=== PATIENT | female | born 1995 | race Caucasian/White ===

== ENCOUNTER 2019-09-16 09:11 | Emergency (ER) | payer OTHER ==
[~2019-09-16] VITALS: Ht 167.6 cm; Wt 76.7 kg
[2019-09-16] MEDS ORDERED: ZOFRAN4 MG PO (09:39)
[2019-09-16 10:01] LABS: URINE BLOOD 3+ (Negative); URINE CLARITY CLOUDY; URINE COLOR BROWN; URINE GLUCOSE-RANDOM TRACE (Negative); URINE KETONES TRACE (Negative); URINE LEUKOCYTES-REFLEX NEGATIVE (Negative); URINE PROTEIN 2+ (Negative); URINE SPECIFIC GRAVITY >= 1.030 (1.005-1.030); URINE UROBILINOGEN 0.2 E.U./dl (0.2-1.0)
[2019-09-16 10:03] LABS: ICTOTEST (BILI CONFIRMATORY) Negative (Negative); URINE BILIRUBIN 2+ (Negative); URINE NITRITE-REFLEX POSITIVE (Negative)
[2019-09-16 10:04] LABS: SQUAMOUS >10 Many /LPF (0-3)
[2019-09-16 10:05] LABS: BACTERIA-REFLEX >30 Many /HPF (None Seen); CASTS None Seen /LPF (None Seen); CRYSTALS None Seen /LPF (None Seen); MUCUS 4-6 Moderate strn/LPF (None Seen); URINE RBC >20 Many /HPF (0-2); URINE WBC-REFLEX 0-5 Rare /HPF (0-5)
[2019-09-16 10:39] LABS: ABSOLUTE BASOPHILS 0.1 thou/uL (0.0-0.2); ABSOLUTE LYMPHOCYTES 2.1 thou/uL (0.8-5.3); ABSOLUTE NEUTROPHILS 6.7 thou/uL (1.6-8.1); BASOPHILS 0.6 %; EOSINOPHILS 0.4 %; HEMATOCRIT 42.6 % (37.0-47.0); LYMPHOCYTES 21.3 %; MCH 31.2 pg (26.0-34.0); MCHC 35.2 g/dL (28.0-37.0); MCV 88.7 fL (80.0-100.0); MONOCYTES 10.2 %; MPV 9.7 fl. (7.2-11.1); NUCLEATED RBCS 0 /100WBC; PLATELET COUNT* 282 thou/uL (150-400); POLYS 67.5 %; RDW-CV 12.4 % (10.5-14.5); WBC 9.8 thou/uL (4.0-11.0)
[2019-09-16 10:47] LABS: CALCIUM 8.9 mg/dL (8.5-10.1); CREATININE 0.8 mg/dL (0.6-1.3)
[2019-09-16 10:49] LABS: POTASSIUM 2.7 mmol/L (3.5-5.1)
[2019-09-16 10:52] LABS: ALBUMIN 4.1 g/dL (3.4-5.0); TOTAL BILIRUBIN 1.1 mg/dL (<0.1-1.0); TOTAL PROTEIN 8.4 g/dL (6.4-8.2)
[2019-09-16] MEDS ORDERED: ZOFRAN 4 MG ORAL4 MG PO (11:39)
[2019-09-16] MEDS ORDERED: POTASSIUM20 PO (11:39)
[2019-09-16] MEDS ORDERED: NORCO 5-325 TA1 EAC1 PO (11:39)
[2019-09-16] MEDS ORDERED: AUGMENTIN 875-1 EACH PO (11:39)
[2019-09-16 14:08] VITALS: BP 139/71
== END 2019-09-16 14:09 | disposition home or self-care (01) ==
LOC: M.ERS 09:11
PROVIDERS: Emergency Medicine Emergency Medical Services
DX: K52.9 Noninfective gastroenteritis and colitis, unspecified (principal); E87.6 Hypokalemia; N39.0 Urinary tract infection, site not specified

== ENCOUNTER 2019-09-20 08:48 | Observation (INO) | payer OTHER ==
[~2019-09-20] VITALS: Ht 165.1 cm; Wt 77.1 kg
[~2019-09-20 08:48] MED LIST: AUGMENTIN 875-1 EACH PO; NORCO 5-325 TA1 EAC1 PO; POTASSIUM20 PO; ZOFRAN 4 MG ORAL4 MG PO; ZOFRAN4 MG PO
[2019-09-20 09:00] VITALS: BP 141/89
[2019-09-20] MEDS ORDERED: PROMS25 WY RECTAL (09:02)
[2019-09-20 09:08] LABS: URINE BLOOD NEGATIVE (Negative); URINE CLARITY CLEAR; URINE COLOR YELLOW; URINE GLUCOSE-RANDOM NEGATIVE (Negative); URINE KETONES 2+ (Negative); URINE LEUKOCYTES-REFLEX TRACE (Negative); URINE NITRITE-REFLEX NEGATIVE (Negative); URINE PROTEIN NEGATIVE (Negative); URINE UROBILINOGEN 0.2 E.U./dl (0.2-1.0)
[2019-09-20 09:16] LABS: ICTOTEST (BILI CONFIRMATORY) Negative (Negative); URINE BILIRUBIN 1+ (Negative)
[2019-09-20 09:18] LABS: BACTERIA-REFLEX 1-9 Few /HPF (None Seen); CASTS None Seen /LPF (None Seen); CRYSTALS None Seen /LPF (None Seen); MUCUS None Seen strn/LPF (None Seen); SQUAMOUS 4-10 Moderate /LPF (0-3); URINE RBC 0-2 Rare /HPF (0-2); URINE WBC-REFLEX 0-5 Rare /HPF (0-5)
[2019-09-20 09:38] LABS: ABSOLUTE BASOPHILS 0.1 thou/uL (0.0-0.2); ABSOLUTE LYMPHOCYTES 1.8 thou/uL (0.8-5.3); ABSOLUTE MONOCYTES 0.7 thou/uL (0.0-1.2); ABSOLUTE NEUTROPHILS 8.5 thou/uL (1.6-8.1); BASOPHILS 0.5 %; EOSINOPHILS 0.4 %; HEMATOCRIT 45.6 % (37.0-47.0); LYMPHOCYTES 15.9 %; MCHC 35.2 g/dL (28.0-37.0); MCV 88.2 fL (80.0-100.0); MONOCYTES 6.7 %; MPV 9.6 fl. (7.2-11.1); NUCLEATED RBCS 0 /100WBC; PLATELET COUNT* 284 thou/uL (150-400); POLYS 76.5 %; RBC 5.17 mil/uL (4.20-5.00); RDW-CV 12.5 % (10.5-14.5); WBC 11.1 thou/uL (4.0-11.0)
[2019-09-20 09:48] LABS: CALCIUM 9.4 mg/dL (8.5-10.1); CREATININE 0.8 mg/dL (0.6-1.3)
[2019-09-20 09:52] LABS: ALBUMIN 4.4 g/dL (3.4-5.0); TOTAL PROTEIN 8.7 g/dL (6.4-8.2)
[2019-09-20 09:53] LABS: POTASSIUM 2.8 mmol/L (3.5-5.1)
[2019-09-20 12:37] VITALS: BP 119/70
[2019-09-20 12:51] LABS: AMP/METHAMP Negative (Negative); BARBITURATES Negative (Negative); BENZODIAZEPINES Negative (Negative); COCAINE Negative (Negative); METHADONE Negative (Negative); OPIATES POSITIVE (Negative); PCP Negative (Negative); THC POSITIVE (Negative)
[2019-09-20 13:18] VITALS: BP 115/70
[2019-09-20 16:00] VITALS: BP 105/64
[2019-09-20 19:45] VITALS: BP 115/77
[2019-09-21 04:46] LABS: HEMATOCRIT 39.3 % (37.0-47.0); MCH 31.2 pg (26.0-34.0); MCHC 34.9 g/dL (28.0-37.0); MCV 89.4 fL (80.0-100.0); MPV 9.3 fl. (7.2-11.1); RBC 4.39 mil/uL (4.20-5.00); RDW-CV 12.6 % (10.5-14.5); WBC 9.8 thou/uL (4.0-11.0)
[2019-09-21 04:56] LABS: HEMOGLOBIN 13.7 gm/dL (12.0-15.0)
[2019-09-21 04:58] LABS: ALBUMIN 3.8 g/dL (3.4-5.0); CALCIUM 8.8 mg/dL (8.5-10.1); CREATININE 0.8 mg/dL (0.6-1.3); PHOSPHORUS* 3.1 mg/dL (2.5-4.9); POTASSIUM 3.3 mmol/L (3.5-5.1)
[2019-09-21 07:30] VITALS: BP 120/80
[2019-09-21] MEDS ORDERED: FLAGYL500 M1 PO (10:52)
[2019-09-21] MEDS ORDERED: CIPRO500 M1 PO (10:52)
[2019-09-21 11:04] VITALS: BP 120/80
[2019-09-21 11:07] VITALS: BP 120/80
[2019-09-21 11:37] VITALS: BP 120/80
== END 2019-09-21 11:30 | disposition home or self-care (01) ==
LOC: M.ERS 08:48 → M.TBA-ER 10:29 → M.ORTHSURG 10:29
PROVIDERS: Emergency Medicine; ADMIT Family Medicine; ATTEND Family Medicine
DX: K52.9 Noninfective gastroenteritis and colitis, unspecified (principal); E87.6 Hypokalemia; N39.0 Urinary tract infection, site not specified

== ENCOUNTER 2019-10-21 19:42 | Emergency (ER) | payer OTHER ==
[~2019-10-21] VITALS: Ht 162.6 cm; Wt 77.1 kg
[~2019-10-21 19:42] MED LIST changes: +CIPRO500 M1 PO; +FLAGYL500 M1 PO; +PROMS25 WY RECTAL
[2019-10-21 20:06] LABS: URINE BILIRUBIN NEGATIVE (Negative); URINE BLOOD NEGATIVE (Negative); URINE CLARITY CLEAR; URINE COLOR YELLOW; URINE GLUCOSE-RANDOM NEGATIVE (Negative); URINE KETONES 3+ (Negative); URINE LEUKOCYTES-REFLEX NEGATIVE (Negative); URINE NITRITE-REFLEX NEGATIVE (Negative); URINE PROTEIN 1+ (Negative); URINE SPECIFIC GRAVITY 1.025 (1.005-1.030); URINE UROBILINOGEN 0.2 E.U./dl (0.2-1.0)
[2019-10-21 20:16] LABS: AMP/METHAMP Negative (Negative); BARBITURATES Negative (Negative); BENZODIAZEPINES Negative (Negative); COCAINE Negative (Negative); METHADONE Negative (Negative); OPIATES Negative (Negative); PCP Negative (Negative); THC POSITIVE (Negative)
[2019-10-21 20:58] LABS: HEMATOCRIT 43.1 % (37.0-47.0); MCH 31.6 pg (26.0-34.0); MCHC 34.8 g/dL (28.0-37.0); MCV 90.8 fL (80.0-100.0); MPV 10.1 fl. (7.2-11.1); NUCLEATED RBCS 0 /100WBC; PLATELET COUNT* 260 thou/uL (150-400); RBC 4.75 mil/uL (4.20-5.00); RDW-CV 12.9 % (10.5-14.5); WBC 9.9 thou/uL (4.0-11.0)
[2019-10-21 21:16] LABS: CALCIUM 9.6 mg/dL (8.5-10.1); CREATININE 0.9 mg/dL (0.6-1.3); POTASSIUM 3.2 mmol/L (3.5-5.1)
[2019-10-21 21:20] LABS: ALBUMIN 4.5 g/dL (3.4-5.0); MAGNESIUM 1.7 mg/dL (1.8-2.4); TOTAL BILIRUBIN 0.6 mg/dL (<0.1-1.0); TOTAL PROTEIN 8.4 g/dL (6.4-8.2)
[2019-10-21 22:07] LABS: ABSOLUTE LYMPHOCYTES 0.6 thou/uL (0.8-5.3); ABSOLUTE MONOCYTES 0.3 thou/uL (0.0-1.2); PLATELET ESTIMATE ADEQUATE
[2019-10-21] MEDS ORDERED: COMPAZINE25 M1 RECTAL (23:39)
[2019-10-21] MEDS ORDERED: COMPAZINE10 M2 PO (23:39)
[2019-10-22 00:18] VITALS: BP 148/77
== END 2019-10-22 00:18 | disposition home or self-care (01) ==
LOC: M.ERS 19:42
PROVIDERS: Emergency Medicine
DX: R11.2 Nausea with vomiting, unspecified (principal); Z91.040 Latex allergy status; Z91.018 Allergy to other foods

== ENCOUNTER 2019-10-27 15:29 | Observation (INO) | payer OTHER ==
[~2019-10-27] VITALS: Ht 167.6 cm; Wt 77.1 kg
[~2019-10-27 15:29] MED LIST changes: +COMPAZINE10 M2 PO; +COMPAZINE25 M1 RECTAL
[2019-10-27 15:50] VITALS: BP 134/101
[2019-10-27 16:05] LABS: URINE BLOOD 3+ (Negative); URINE CLARITY CLEAR; URINE COLOR YELLOW; URINE GLUCOSE-RANDOM NEGATIVE (Negative); URINE KETONES 1+ (Negative); URINE LEUKOCYTES-REFLEX NEGATIVE (Negative); URINE NITRITE-REFLEX NEGATIVE (Negative); URINE PROTEIN NEGATIVE (Negative); URINE UROBILINOGEN 0.2 E.U./dl (0.2-1.0)
[2019-10-27 16:06] LABS: URINE BILIRUBIN 1+ (Negative)
[2019-10-27 16:07] LABS: ICTOTEST (BILI CONFIRMATORY) Negative (Negative)
[2019-10-27 16:12] LABS: CASTS None Seen /LPF (None Seen); CRYSTALS None Seen /LPF (None Seen); MUCUS 0-3 Light strn/LPF (None Seen); SQUAMOUS 0-3 Few /LPF (0-3); URINE RBC 3-10 Few /HPF (0-2); URINE WBC-REFLEX 6-15 Few /HPF (0-5)
[2019-10-27 16:32] LABS: ABSOLUTE BASOPHILS 0.1 thou/uL (0.0-0.2); ABSOLUTE EOSINOPHILS 0.1 thou/uL (0.0-0.7); ABSOLUTE LYMPHOCYTES 1.9 thou/uL (0.8-5.3); ABSOLUTE MONOCYTES 0.8 thou/uL (0.0-1.2); ABSOLUTE NEUTROPHILS 7.5 thou/uL (1.6-8.1); BASOPHILS 0.8 %; EOSINOPHILS 0.7 %; HEMATOCRIT 42.5 % (37.0-47.0); HEMOGLOBIN 15.1 gm/dL (12.0-15.0); MCH 31.5 pg (26.0-34.0); MCHC 35.5 g/dL (28.0-37.0); MCV 88.9 fL (80.0-100.0); MONOCYTES 8.2 %; MPV 9.6 fl. (7.2-11.1); NUCLEATED RBCS 0 /100WBC; PLATELET COUNT* 295 thou/uL (150-400); POLYS 72.3 %; RBC 4.78 mil/uL (4.20-5.00); RDW-CV 12.6 % (10.5-14.5); WBC 10.3 thou/uL (4.0-11.0)
[2019-10-27 16:43] LABS: CALCIUM 9.4 mg/dL (8.5-10.1); CREATININE 0.9 mg/dL (0.6-1.3)
[2019-10-27 16:44] LABS: POTASSIUM 2.8 mmol/L (3.5-5.1)
[2019-10-27 16:47] LABS: ALBUMIN 4.5 g/dL (3.4-5.0); TOTAL BILIRUBIN 0.9 mg/dL (<0.1-1.0); TOTAL PROTEIN 7.9 g/dL (6.4-8.2)
[2019-10-27 17:54] LABS: AMP/METHAMP Negative (Negative); BARBITURATES Negative (Negative); BENZODIAZEPINES Negative (Negative); COCAINE Negative (Negative); METHADONE Negative (Negative); OPIATES Negative (Negative); PCP Negative (Negative); THC POSITIVE (Negative)
[2019-10-27 20:30] VITALS: BP 138/89
[2019-10-27 20:43] VITALS: BP 135/92
[2019-10-27 20:51] VITALS: BP 135/92
[2019-10-28 03:46] LABS: HEMATOCRIT 41.2 % (37.0-47.0); HEMOGLOBIN 14.3 gm/dL (12.0-15.0); MCH 31.4 pg (26.0-34.0); MCHC 34.9 g/dL (28.0-37.0); MCV 90.1 fL (80.0-100.0); MPV 9.6 fl. (7.2-11.1); RBC 4.57 mil/uL (4.20-5.00); RDW-CV 12.5 % (10.5-14.5); WBC 8.8 thou/uL (4.0-11.0)
[2019-10-28 03:55] LABS: CALCIUM 8.7 mg/dL (8.5-10.1); CREATININE 0.7 mg/dL (0.6-1.3); POTASSIUM 3.3 mmol/L (3.5-5.1)
[2019-10-28 04:00] LABS: ALBUMIN 4.1 g/dL (3.4-5.0); TOTAL BILIRUBIN 0.6 mg/dL (<0.1-1.0); TOTAL PROTEIN 7.7 g/dL (6.4-8.2)
--- NOTE | 2019-10-28 04:56 | NUR ---
PATIENT UP STANDBY ASSIST. PAIN 5/10 AND GIVEN PAIN MEDICATION. HAD SOME NAUSEA AND VOMITING THROUGHOUT THE NIGHT. RECEIVED ALL MEDS SCHEDULED. THERE WAS SOME BLOOD TINGED VOMIT AT BEGINNING OF SHIFT. GIVEN PHENERGEN/ZOFRAN FOR NAUSEA. WILL CONTINUE TO MONITOR.
[2019-10-28 07:20] VITALS: BP 130/89
[2019-10-28 12:15] VITALS: BP 120/79
[2019-10-28 13:11] VITALS: BP 120/79
[2019-10-28] MEDS ORDERED: AMITRIPTYLINE H50 M2 PO (13:11)
--- NOTE | 2019-10-28 13:36 | EKG ---
[place] [address] ELECTROCARDIOGRAM REPORT Name: JUAN COUCHGH Room: [address]R.#: [id number] Admission: 10/27/19 Attend Phys: Christian Amin, Discharge: Date of : [birth year] Date of Service: 10/27/19 1838 Report #: [id number] THIS REPORT FOR: //name// [facility] ED Test Date: 2019-10-27 Test Time: 18:38:45 Pat Name: JUAN COUCH Department: Room: [facility] Gender: F Fisher [employer]: : 1995 Requested By: Jaden Buenrostro Order Number: [id number] MD: Wu Moreno Measurements Intervals [place] Rate: 85 P: 12 MI: 165 QRS: 40 QRSD: 93 T: -17 QT: 373 QTc: 444 Interpretive Statements Sinus rhythm Borderline repolarization abnormality No previous ECG available for comparison Electronically Signed On 10-28-2019 13:36:26 CDT by Wu Moreno [email or web address] <ELECTRONICALLY SIGNED> By: Wu Moreno MD, [facility] 10/28/19 1336 1838 1838 Wu Moreno MD, [facility] /EPI
--- NOTE | 2019-10-28 18:02 | NUR ---
PATIENT C/O IV PAIN THIS AM. SHOT DROPPER AND ER NURSE ATTEMPTED BUT WERE UNSUCCESSFUL. GI CONSULTED AND PATIENT HAD EGD THIS AM. PATIENT RETURNED THIS AFTERNOON AND STATED SHE FELT GOOD. PATIENT TOLERATED CLEAR LIQUIDS AND SOME PEACHES. POTASSIUM REPLACED PO PER PROTOCOL. DR. PERRY NOTIFIED THIS EVENING THAT GI OK FOR PATIENT TO DISCHARG HOME IF TOLERATING DIET, PATIENT STATED SHE WANTED TO GO HOME. AROUND 1700 PATIENT ATTEMPTED TO EAT DINNER PRIOR TO DISCHARGE AND VOMITED. PATIENT C/O ABD PAIN THIS EVENING. DR. MCGREGOR [employer] CHIEF, PATIENT DISCHARGE ON HOLD. DR. LUONG PAGED TO INFORM, AWAITING CALL BACK. SCOPALAMINE PATCH IN PLACE BEHIND RIGHT EAR. IVF INFUSING TO RIGHT UPPER ARM IV STARTED BY YVETTE.
[2019-10-28 19:58] VITALS: BP 105/71
[2019-10-29 04:13] LABS: HEMATOCRIT 36.2 % (37.0-47.0); HEMOGLOBIN 12.6 gm/dL (12.0-15.0); MCH 31.7 pg (26.0-34.0); MCHC 34.9 g/dL (28.0-37.0); MCV 90.8 fL (80.0-100.0); MPV 9.6 fl. (7.2-11.1); RBC 3.98 mil/uL (4.20-5.00); RDW-CV 12.7 % (10.5-14.5); WBC 6.7 thou/uL (4.0-11.0)
[2019-10-29 04:32] LABS: ALBUMIN 3.4 g/dL (3.4-5.0); CALCIUM 8.4 mg/dL (8.5-10.1); CREATININE 0.6 mg/dL (0.6-1.3); POTASSIUM 3.7 mmol/L (3.5-5.1); TOTAL BILIRUBIN 0.7 mg/dL (<0.1-1.0); TOTAL PROTEIN 6.3 g/dL (6.4-8.2)
--- NOTE | 2019-10-29 05:09 | NUR ---
PATIENT DID NOT REPORT ANY WORSENING OF PAIN OR ANY PAIN MEDICATION THIS SHIFT. SHE IS UP TO THE RESTROOM ON HER OWN. RECEIVED ALL MEDS AND FLUIDS ORDERED. SHE REPORTED ONLY VOMITING ONE TIME THIS SHIFT WHICH WAS AN IMPROVEMENT FROM THE PREVIOUS NIGHT. NO WORSENING OF PAIN OR NAUSEA. WILL CONTINUE TO MONITOR.
[2019-10-29] MEDS ORDERED: PROMS25 WY RECTAL (07:05)
[2019-10-29 07:30] VITALS: BP 103/57
--- NOTE | 2019-10-29 10:50 | NUR ---
PATIENT DISCHARGED TO HOME AT THIS TIME WITH MOM. TOLERATED BREAKFAST. UP AD GIOVANNA. VERBALIZED UNDERSTANDING OF PAPERWORK AND SCRIPTS SENT TO PHARMACY. PATIENT AMBULATED OUT WITH NURSING STAFF.
--- NOTE | 2019-10-29 11:14 | CON ---
[address] [address] CONSULTATION Name: JUAN COUCH Room: [address] Ami Ha#: [id number] Admission: 10/27/19 Attend Phys: Christian Amin MD Discharge: 10/29/19 Date of : [birth year] Report #: [id number] THIS REPORT FOR: //name// cc: Maxx Barrow Russell J. DO ~ THIS REPORT FOR: //name// CC: Christian Barrow DO DATE OF SERVICE: 10/28/2019 INDICATION FOR CONSULT: Persistent nausea and vomiting. HISTORY OF PRESENT ILLNESS: This is a 23-year-old female with intermittent nausea, vomiting and epigastric pain. The patient reports that her symptoms started in August, which lasted several days. Since then, she has had 3 attacks and 2 hospitalizations. She reports that once the symptoms started, which include nausea, vomiting and epigastric pain. She cannot control her retching until the symptoms go away. She has had some imaging studies, which have been negative. She admits to smoking marijuana. The patient denies any hematochezia, melena or hematemesis. Currently, she reports that she is feeling much better than the last several days. PAST MEDICAL HISTORY: Significant for what mentioned above. ALLERGIES: No known drug allergy. MEDICATIONS: control pills. PHYSICAL EXAMINATION: VITAL SIGNS: Reveals normal vitals. LUNGS: Clear. CARDIOVASCULAR: Regular. ABDOMEN: Soft, mildly tender to palpation in the epigastric region. Bowel sounds are positive. NEUROLOGIC: The patient is alert and oriented x 3. There is no focal neurologic deficit. LABORATORY DATA: Reveal sodium of 137, potassium 3.3, BUN is 7, creatinine 0.7, GFR is 105, glucose is 104. AST, ALT and alkaline phosphatase are all within normal limit. Albumin is 4.4. C-reactive protein falls within normal range. WBC is 8.8 with hemoglobin of 14.3 and platelet of 264. UA [place] [address] CONSULTATION Name: IZAJUAN PANCHO Room: [address]#: [id number] Admission: 10/27/19 Attend Phys: Christian Amin MD Discharge: 10/29/19 Date of : [birth year] Report #: [id number] with urine wbc 6-15. IMAGING: CT is significant for improvement in previously noted colitis without any acute findings. ASSESSMENT AND PLAN: The patient with intermittent nausea, vomiting and epigastric pain, which usually wakes her up in the early hours of morning and may last a few days before she is back to normal until her next episode. She admits that she has smoked marijuana for a while. 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 I will perform an upper endoscopy to assure that there is no other organicity to her problem. If her upper endoscopy is negative, I will encourage her not to smoke marijuana and put her temporarily on amitriptyline 50 mg at bedtime. The patient is agreeable with plan. <ELECTRONICALLY SIGNED> By: Isabela Orta MD 10/29/19 1114 1017 [id number] Orta MD /nt
== END 2019-10-29 10:51 | disposition home or self-care (01) ==
LOC: M.ERS 15:29 → M.TBA-ER 18:23 → M.ORTHSURG 20:30
PROVIDERS: Physician Assistant; ADMIT Internal Medicine; ATTEND Internal Medicine
DX: K44.9 Diaphragmatic hernia without obstruction or gangrene (principal); R11.2 Nausea with vomiting, unspecified; E86.9 Volume depletion, unspecified; E87.6 Hypokalemia; R10.13 Epigastric pain

== ENCOUNTER → 2019-12-18 | Outpatient (CLI) | payer OTHER ==
[~2019-12-18] MED LIST changes: +AMITRIPTYLINE H50 M2 PO
== END ==
LOC: M.NUC 11-28 07:30
PROVIDERS: ATTEND Internal Medicine Gastroenterology
DX: R11.2 Nausea with vomiting, unspecified (principal)